=== PATIENT | male | born 1975 | race Caucasian/White ===

== ENCOUNTER 2025-04-14 09:31 | Outpatient (AMB) | payer MEDICAID, SELFPAY ==
[2025-04-14 09:41] VITALS: BP 153/97; PULSE 79; RESP 18; TEMP 36.3; O2SAT 97; BMI 26.4
--- NOTE | 2025-04-14 09:41 | ORTHONT_ITS ---
Vital signs 04/14/25 09:41 Height 1.73 m Height Method Stated Weight 78.925 kg Weight Measurement Method Standing Scale BMI 26.4 BP 153/97 H Blood Pressure Source Automatic Cuff Blood Pressure Location Right Upper Arm Position Sitting Respiration 18 Pulse 79 Pulse Source Monitor Temp 97.3 F Temp Source Temporal Artery Scan Pulse Oximetry (%) 97 Oxygen Delivery Method Room Air Med/Allergies Allergies & Medications Allergies No Known Drug Allergies Allergy (Verified 04/14/25 09:42) Medication Reconciliation celecoxib 50 mg capsule 50 mg PO BID 04/14/25 [History Confirmed 04/14/25] Exam Exam Patient is in no acute distress and is cooperative with the examination today. Breathing is nonlabored. Patient has a normal mood and affect. The patient has a gait that is nonantalgic Bilateral extremities were evaluated and demonstrates sensation intact to light touch. Palpable pedal pulses are present. No significant edema is present. Bilateral hips were examined. The patient has no pain with log roll of the hips. Internal rotation to 30 degrees and external rotation to 30 degrees is painless. Negative FADIR. Left knee was examined today. The left knee is in reasonable alignment. Range of motion from 0-120 degrees. Knee is stable to varus and valgus as well as AP translation with <5mm. Patient has a negative McMurrays. There is no pain with patellofemoral compression and no crepitus noted. The knee is nontender to palpation. The right knee was also examined. The right knee is in neutral alignment. Range of motion from 0-120 degrees. Knee is stable to varus and valgus as well as AP translation with <5mm. Patient has a negative McMurrays. There is no pain with patellofemoral compression and no crepitus noted. The knee is nontender to palpation diffusely. Patient has no x-rays to be today Assessment and Plan Problem List (1) Pain in right knee: Status: Acute Plan: Patient is a pleasant 49-year-old male with right knee pain. The knee pain has largely resolved. I would like to see his weightbearing x-rays. Given that his pain has gotten better, I want him to let us know if the pain is worse. He should also get his weightbearing x-rays Office Procedures GNS Level of Care Nursing/Assessment Patient Status: Initial/New Patient Nursing Assessment/Reassesment: Medication Reconciliation, Update PMH in EMR and Vital Signs Coordination of Care: Complex Care and Chronic Disease 1-5, Education Complex Pt/Fam, Consent,records obtained, informed consent, Results/Orders obtained and Staff clarify orders New Patient Charge New Patient Point Assignment: 1094 New Patient Point Charge: SHIP[employer]S PILOT Level 2 (2172-1723) MA Intake Visit Data Collection New Patient or Established: New Patient (never been to [facility]) Reason for Visit:: KNEE PAIN Seen by Clinical Staff ONLY (RN/MA): No Verbal consent obtained for Telemed visit?: No Chief Ultrasound Technologist Required: No PCP or OBGYN visit in last 3 months: Yes Hx Now: No Do You Feel Safe at Home: Yes Authorities Contacted: N/A Questionairres Past Medical History Past Medical History Have you ever been diagnosed with any of the following: Respiratory Problems Smoking: No Smoking Cessation Counseling: No Smoking Exposure: No Subjective Visit Visit for: new patient and knee Immunization / Flu Flu Vaccine in the Last 12 Months: No Flu Vaccine Exclusion Criteria: No Exclusion Criteria History of Present Illness Chief complaint: Right knee pain Date of injury / onset of symptoms: END Jan Right knee painMiguel is a pleasant 49-year-old male with right knee pain that started out of the blue. This occurred 3 months ago after no specific trauma. The pain improved significantly since then. He has no pain at all. He did show me pictures of his knee which showed a large effusion. It was drained And it went away. He also had a Toradol injection in his buttocks Personal History Red flag PMH: BMI BMI Counceling provided: Yes Pain Pain level (0-10): 2 Pain location: anterior Pain quality: dull Associated signs & symptoms: none Ambulatory data Ambulatory device: none Treatments Number of previous injections: 0 Improvement with previous injections: No Improvement with PT: No Improvement with NSAIDS: no Review of Systems Review of Systems: All systems negative unless otherwise noted in HPI.
== END 2025-04-14 09:46 | disposition home or self-care (01) ==
LOC: HODSRG 09:31
PROVIDERS: Supervising Provider Orthopaedic Surgery Adult Reconstructive Orthopaedic Surgery; Visit Provider Orthopaedic Surgery Adult Reconstructive Orthopaedic Surgery
DX: M25.561 Pain in right knee (principal)
CPT/HCPCS: 99202; G0463